=== PATIENT | male | born 1985 | race Caucasian/White ===

== ENCOUNTER 2016-12-06 08:39 | Emergency (ER) | payer BC ==
[~2016-12-06] VITALS: Ht 167.6 cm; Wt 86.2 kg
[~2016-12-06 08:39] MED LIST: DEXTROAMP-AMPHE10 MG PO; ESCITALOPRAM OX20 MG; LORAZEPAM1 MG
[2016-12-06 09:46] LABS: HEMATOCRIT 40.9 % (38.0-50.0); MCH 28.6 PG (29.0-34.0); MCHC 34.2 G/DL (30.0-36.0); MCV 83.5 FL (86-99); MEAN PLAT.VOLUME 9.6 uM^3 (9.0-12.4); PLATELET COUNT 280 K/uL (156-360); RBC DIS.WIDTH-CV 12.9 % (11.8-14.6); RBC DIS.WIDTH-SD 38.8 % (39-53); WHITE BLOOD COUNT 3.5 K/uL (4.1-10.2)
[2016-12-06 09:56] LABS: CHLORIDE 105 mEq/L (99-109); POTASSIUM 4.9 mEq/L (3.7-5.4); SODIUM 141 mEq/L (136-147)
[2016-12-06 09:58] LABS: GLUCOSE 69 mg/dL (70-99)
[2016-12-06 10:00] LABS: ANION GAP 7 MEQ/L (2-14)
[2016-12-06 10:02] LABS: GFR ESTIMATE (CALCULATED) > 59 mL/min/
[2016-12-06 10:03] LABS: UREA NITROGEN (BUN) 15 mg/dL (9-23)
[2016-12-06 10:07] LABS: TROP-I INTERPRETATION NEGATIVE; TROPONIN-I < 0.01 ng/mL (0.0-0.30)
[2016-12-06 12:07] LABS: TROP-I INTERPRETATION NEGATIVE; TROPONIN-I < 0.01 ng/mL (0.0-0.30)
[2016-12-06 12:38] VITALS: BP 140/71
== END 2016-12-06 12:41 | disposition home or self-care (01) ==
LOC: EME 08:39
PROVIDERS: Emergency Medicine
DX: R07.89 Other chest pain (principal); F90.9 Attention-deficit hyperactivity disorder, unspecified type; Z72.0 Tobacco use
CPT/HCPCS: 71020; 80048; 84484; 85027; 93005; 99281; 99284

== ENCOUNTER 2017-06-25 10:44 | Emergency (ER) | payer BC ==
[~2017-06-25] VITALS: Ht 167.6 cm; Wt 85.4 kg
[2017-06-25 12:35] VITALS: BP 122/70
== END 2017-06-25 12:37 | disposition home or self-care (01) ==
LOC: EME 10:44
DX: S60.221A Contusion of right hand, initial encounter (principal); W23.0XXA Caught, crushed, jammed, or pinched between moving objects, initial encounter; Y99.0 Civilian activity done for income or pay; F17.200 Nicotine dependence, unspecified, uncomplicated
CPT/HCPCS: 99281; 99283